=== PATIENT | female | born 1965 | race Caucasian/White ===

== ENCOUNTER → 2016-08-19 | Outpatient (CLI) | payer BC ==
[~2016-08-19] MED LIST: GLUCTAB7 PO; HYDR-5688 PO; MULT-506 PO; NAPR1TAB9 PO; PROP20TA67 PO
== END | disposition home or self-care (01) ==
LOC: C.PATHSPEC 14:48
PROVIDERS: ATTEND Dentist Endodontics
DX: K04.7 Periapical abscess without sinus (principal)